=== PATIENT | female | born 1950 | race Caucasian/White ===

== ENCOUNTER 2016-11-17 10:39 | Outpatient (CLI) | payer MEDICARE ==
[2016-11-17 11:10] LABS: HEMOGLOBIN A1C 0.65 g/dL
== END 2016-11-17 10:40 | disposition home or self-care (01) ==
LOC: LAB 10:39
PROVIDERS: ATTEND Physician Assistant Medical
DX: E11.9 Type 2 diabetes mellitus without complications (principal)
CPT/HCPCS: 36415; 80053; 83036; 86803

== ENCOUNTER 2016-11-25 10:45 | Outpatient (CLI) | payer MEDICARE ==
--- NOTE | 2016-11-26 15:20 | Mammography Report ---
DIGITAL SCREENING MAMMOGRAM: 11/25/2016 CLINICAL INDICATION: A 66-year-old nulliparous patient, for screening. COMPARISON: 07/2015, 06/2014, 05/2013, 03/2012, 12/2010. TECHNIQUE: Routine CC and MLO projections were obtained of the breasts. FINDINGS: Parenchymal tissue within the breasts is predominantly fatty replaced. There are no domina nt masses, suspicious microcalcifications, or secondary signs of malignancy. In comparison to the pre vious studies, there are no significant changes. IMPRESSION: NO MAMMOGRAPHIC EVIDENCE OF MALIGNANCY. NO SIGNIFICANT INTERVAL CHANGES. RECOMMENDATION: Screening mammography is recommended annually. BIRADS category 1 - negative. STANDARD QUALIFYING STATEMENTS 1. This examination was reviewed with the aid of Computed-Aided Detection (CAD). 2. A negative or benign imaging report should not delay biopsy if clinically suspicious findings are present. Consider surgical consultation if warranted. More than 5% of cancers are not identified by i maging. 3. Dense breasts may obscure an underlying neoplasm. 14:9:35 JOB #: [id number] EXT JOB #:[id number]
== END 2016-11-25 10:46 | disposition home or self-care (01) ==
LOC: DI 10:45
PROVIDERS: ATTEND Physician Assistant Medical
DX: Z12.31 Encounter for screening mammogram for malignant neoplasm of breast (principal)
CPT/HCPCS: 77067

== ENCOUNTER 2017-01-27 08:09 | Day surgery (SDC) | payer MEDICARE ==
[2017-01-27] MEDS ORDERED: LACTATED RINGERS 1,000 ML IV ONE (08:55)
[2017-01-27] MEDS ORDERED: CYCLOPENTOLATE 1% OPHTH DROPS 2 ML OPTH ONE (09:15)
[2017-01-27] MEDS ORDERED: PHENYLEPHRINE 2.5% OPHTH 2 ML DROPS OPTH ONE (09:15)
[2017-01-27] MEDS ORDERED: PROPARACAINE 0.5% OPHTH DROPS 15 ML OPTH ONE ×2 (09:15→10:01)
[2017-01-27] MEDS ORDERED: KETOROLAC 0.45% OPHTH DROPS OPTH ONE (09:15)
[2017-01-27] MEDS ORDERED: LACTATED RINGERS 500 ML IV ONE (10:03)
[2017-01-27] MEDS ORDERED: EPINEPHrine 1 MG/ML AMP IVP ONE (10:06)
[2017-01-27] MEDS ORDERED: BRIMONIDINE 0.2% OPHTH DROPS 5 ML OPTH ONE (10:06)
[2017-01-27] MEDS ORDERED: MIDAZOLAM 2 MG/2 ML VIAL IVP ONE (10:09)
[2017-01-27] MEDS ORDERED: PROPOFOL 200 MG/20 ML VIAL IVP ONE (10:09)
[2017-01-27] MEDS ORDERED: LIDOCAINE-MPF 2% 5 ML VIAL IM ONE (10:09)
[2017-01-27] MEDS ORDERED: TIMOLOL 0.5% OPHTH DROPS OPTH ONE (10:13)
[2017-01-27] MEDS ORDERED: CHONDR SULF/HYALURONATE SYRINGE IO ONE (10:13)
[2017-01-27] MEDS ORDERED: BSS/LIDOCAINE/EPINEPHRINE 1 ML SYRINGE IO ONE (10:13)
[2017-01-27] MEDS ORDERED: TRIAMCIN/MOXIFLOX/VANCO 1 ML VIAL IO ONE (10:13)
[2017-01-27 10:30] VITALS: BP 141/62
--- NOTE | 2017-01-27 10:52 | OPERATIVE REPORT ---
DATE OF SURGERY: 01/27/2017 00:00:00 PREOPERATIVE DIAGNOSIS: Visually significant cataract, right eye. This is her first cataract surgery. POSTOPERATIVE DIAGNOSIS: Visually significant cataract, right eye. This is her first cataract surgery . NAME OF PROCEDURE: Phacoemulsification with posterior chamber intraocular lens implant, right eye. SURGEON: Gian Sequeira MD ANESTHESIA: Monitored anesthesia care. COMPLICATIONS: None. OPERATIVE INDICATIONS: This is a 66-year-old woman with progressive vision loss in the right eye due to 2-3+ nuclear sclerotic and 3+ cortical cataract. Best corrected visual acuity was 20/40 with glare to 20/630. Indications for surgery were overall decrease in vision, difficulty seeing words on a com puter screen, difficulty seeing words and game scores on TV, difficulty seeing street signs, difficul ty with glare or bright lights in any situation, and she said everything looks like smog and is hazy. She was consented at length concerning the risks and benefits of cataract surgery after which she ex pressed a desire to proceed with surgery. OPERATIVE PROCEDURE: The patient was taken into OR #2 and placed under monitored anesthesia care. A s urgical time-out was conducted confirming correct patient, correct procedure and correct surgical sit e. She was given topical anesthesia and then prepped and draped in the usual sterile fashion. The eye was entered at the 12 and 9 o'clock positions. Intracameral Shugarcaine was injected into the anteri or chamber followed by Viscoat. A continuous tear curvilinear capsulorrhexis was performed. The nucle us was hydrodissected and phacoemulsified. Cortex was evacuated using automated infusion and aspirati on. Provisc was injected in the capsular bag and a 21.0 diopter intraocular lens was inserted into th e bag. Approximately 0.7 mL of a mixture of triamcinolone, moxifloxacin and vancomycin was injected s ubconjunctivally in the superior quadrant for infection and inflammation prophylaxis. I/A was used to evacuate the viscoelastic materials. The eye was inflated to physiologic pressure using balanced linda t solution and found to be watertight. The patient was taken from the operating room in good conditio n and given postoperative instructions. JOB #: [id number] EXT JOB #:[id number]
== END 2017-01-27 08:10 | disposition home or self-care (01) ==
LOC: SDS 08:09
PROVIDERS: ATTEND Ophthalmology
PROC: 08RJ3JZ Replacement of Right Lens with Synthetic Substitute, Percutaneous Approach (ICD-10-PCS; principal; 2017-01-27 09:30)
DX: E11.36 Type 2 diabetes mellitus with diabetic cataract (principal); H25.811 Combined forms of age-related cataract, right eye; M19.90 Unspecified osteoarthritis, unspecified site; Z87.891 Personal history of nicotine dependence; K21.9 Gastro-esophageal reflux disease without esophagitis; G47.30 Sleep apnea, unspecified; Z79.82 Long term (current) use of aspirin; E78.00 Pure hypercholesterolemia, unspecified; I10 Essential (primary) hypertension
CPT/HCPCS: 66984; A9270; V2632

== ENCOUNTER 2017-03-24 07:42 | Day surgery (SDC) | payer MEDICARE ==
[~2017-03-24 07:42] MED LIST: BRIMONIDINE 0.2% OPHTH DROPS 5 ML ONE; CYCLOPENTOLATE 1% OPHTH DROPS 2 ML ONE; KETOROLAC 0.45% OPHTH DROPS ONE; PHENYLEPHRINE 2.5% OPHTH 2 ML DROPS ONE; PROPARACAINE 0.5% OPHTH DROPS 15 ML ONE; TIMOLOL 0.5% OPHTH DROPS ONE
[2017-03-24] MEDS ORDERED: MIDAZOLAM 2 MG/2 ML VIAL IVP ONE (07:43)
[2017-03-24] MEDS ORDERED: PROPOFOL 200 MG/20 ML VIAL IVP ONE (07:43)
[2017-03-24] MEDS ORDERED: LIDOCAINE-MPF 2% 5 ML VIAL IM ONE (07:43)
[2017-03-24] MEDS ORDERED: PHENYLEPHRINE 2.5% OPHTH 2 ML DROPS OPTH ONE (08:00)
[2017-03-24] MEDS ORDERED: KETOROLAC 0.45% OPHTH DROPS OPTH ONE (08:00)
[2017-03-24] MEDS ORDERED: CYCLOPENTOLATE 1% OPHTH DROPS 2 ML OPTH ONE (08:00)
[2017-03-24] MEDS ORDERED: PROPARACAINE 0.5% OPHTH DROPS 15 ML OPTH ONE ×2 (08:00→09:25)
[2017-03-24] MEDS ORDERED: LACTATED RINGERS 500 ML IV ONE (08:15)
[2017-03-24] MEDS ORDERED: BRIMONIDINE 0.2% OPHTH DROPS 5 ML OPTH ONE (09:24)
[2017-03-24] MEDS ORDERED: CHONDR SULF/HYALURONATE SYRINGE IO ONE (09:25)
[2017-03-24] MEDS ORDERED: EPINEPHrine 1 MG/ML AMP IVP ONE (09:25)
[2017-03-24] MEDS ORDERED: TIMOLOL 0.5% OPHTH DROPS OPTH ONE (09:26)
[2017-03-24] MEDS ORDERED: BSS/LIDOCAINE/EPINEPHRINE 1 ML SYRINGE IO ONE (09:26)
[2017-03-24] MEDS ORDERED: TRIAMCIN/MOXIFLOX/VANCO 1 ML VIAL IO ONE (09:26)
[2017-03-24 10:02] VITALS: BP 148/69
--- NOTE | 2017-03-24 10:11 | OPERATIVE REPORT ---
DATE OF SURGERY: 03/24/2017 00:00:00 PREOPERATIVE DIAGNOSIS: Visually significant cataract, left eye. Cataract surgery was performed on th e right eye on 01/27/2017. POSTOPERATIVE DIAGNOSIS: Visually significant cataract, left eye. Cataract surgery was performed on t he right eye on 01/27/2017. NAME OF PROCEDURE: Phacoemulsification posterior chamber intraocular lens implant, left eye. SURGEON: Gian Sequeira MD. ANESTHESIA: Monitored anesthesia care. COMPLICATIONS: None. OPERATIVE INDICATIONS: This is a 66-year-old woman with progressive vision loss in the left eye due t o a 2 to 3+ nuclear sclerotic and 3+ cortical cataract. Best corrected visual acuity was 20/40 with g lare to 20/400 in the left eye. Indications for surgery were overall decrease in vision, difficulty s eeing words on a computer screen, difficulty reading, difficulty seeing words or close captions on TV , difficulty seeing street signs, difficulty driving in low light or at night, difficulty driving at night because of head lights from other vehicles, difficulty with glare or bright lights in any situa tion, difficulty tracking a golf ball, and everything looks smokey or smoggy. She was consented at [facility] concerning the risks and benefits of cataract surgery, after which she expressed a desire to pro ceed with surgery. OPERATIVE PROCEDURE: The patient was taken into OR #2 and placed under monitored anesthesia care. A s urgical time-out was conducted confirming the correct patient, correct procedure and correct surgical site. She was given topical anesthesia and then prepped and draped in the usual sterile fashion. The eye was entered at the 6- and 3 o'clock positions. Intracameral Shugarcaine was injected into anteri or chamber followed by Viscoat. A continuous tear curvilinear capsulorrhexis was performed. The nucle us was hydrodissected and phacoemulsified. The cortex was evacuated using automated infusion aspirati on. Provisc was injected in the capsular bag and a 21.0 diopter intraocular lens inserted into the ba g. Approximately 0.7 mL of a mixture of triamcinolone, moxifloxacin, and vancomycin was injected subc onjunctivally in the superior quadrant for infection and inflammation prophylaxis. I/A was used to ev acuate the viscoelastic materials. The eye was inflated to physiologic pressure using balanced salt s olution and found to be watertight. The patient was taken from the operating room in good condition a nd given postoperative instructions. JOB #: [id number] EXT JOB #:[id number]
== END 2017-03-24 07:43 | disposition home or self-care (01) ==
LOC: SDS 07:42
PROVIDERS: ATTEND Ophthalmology
PROC: 08RK3JZ Replacement of Left Lens with Synthetic Substitute, Percutaneous Approach (ICD-10-PCS; principal; 2017-03-24 09:00)
DX: H25.812 Combined forms of age-related cataract, left eye (principal); I10 Essential (primary) hypertension; E78.5 Hyperlipidemia, unspecified; G47.30 Sleep apnea, unspecified; C95.90 Leukemia, unspecified not having achieved remission; Z87.891 Personal history of nicotine dependence
CPT/HCPCS: 66984; A9270; J3490; V2632

== ENCOUNTER 2017-05-30 09:49 | Outpatient (CLI) | payer MEDICARE | END 2017-05-30 09:50 | disposition home or self-care (01) | LOC: SC 09:49 | PROVIDERS: ATTEND Internal Medicine Pulmonary Disease | DX: G47.33 Obstructive sleep apnea (adult) (pediatric) (principal) | CPT/HCPCS: 99213; G0463; 99212 ==

== ENCOUNTER 2017-08-04 10:35 | Outpatient (CLI) | payer MEDICARE | END 2017-08-04 10:36 | disposition home or self-care (01) | LOC: LAB 10:35 | PROVIDERS: ATTEND Physician Assistant Medical | DX: M10.9 Gout, unspecified (principal) | CPT/HCPCS: 36415; 84550 ==

== ENCOUNTER 2017-08-24 09:40 | Outpatient (CLI) | payer MEDICARE ==
[2017-08-24 10:22] LABS: CHOL/HDL RATIO 3.5 (<4.4); CHOLESTEROL 159 mg/dL; HDL CHOLESTEROL 45 mg/dL; LDL CHOLESTEROL,CALCULATED 92 mg/dL; VLDL CHOLESTEROL 22 mg/dL
[2017-08-24 10:46] LABS: HB2 TOTAL 14.1 g/dL; HEMOGLOBIN A1C 0.66 g/dL; HEMOGLOBIN A1C % 6.4 % (4.6-6.2)
== END 2017-08-24 09:41 | disposition home or self-care (01) ==
LOC: LAB 09:40
PROVIDERS: ATTEND Physician Assistant Medical
DX: E11.9 Type 2 diabetes mellitus without complications (principal)
CPT/HCPCS: 80061; 83036; 83721

== ENCOUNTER 2018-02-01 09:35 | Outpatient (CLI) | payer MEDICARE ==
[2018-02-01 10:38] LABS: HB2 TOTAL 13.4 g/dL; HEMOGLOBIN A1C 0.51 g/dL; HEMOGLOBIN A1C % 5.6 % (4.6-6.2)
[2018-02-01 11:03] LABS: CHOL/HDL RATIO 3.5 (<4.4); CHOLESTEROL 159 mg/dL; HDL CHOLESTEROL 46 mg/dL; LDL CHOLESTEROL,CALCULATED 90 mg/dL; VLDL CHOLESTEROL 23 mg/dL
== END 2018-02-01 09:36 | disposition home or self-care (01) ==
LOC: LAB 09:35
PROVIDERS: ATTEND Physician Assistant Medical
DX: E11.9 Type 2 diabetes mellitus without complications (principal)
CPT/HCPCS: 80061; 83036; 83721

== ENCOUNTER 2018-02-23 13:23 | Outpatient (CLI) | payer MEDICARE ==
--- NOTE | 2018-02-24 10:18 | Mammography Report ---
Reason: SCREENING MAMMO Procedure Date: 02/23/2018 Accession Number: [id number] / [id number] Procedure: JULIET - Screening Mammo Dig Bilat CPT Code: FULL RESULT: EXAM: Screening Mammo Dig Bilat DATE: 02/23/2018 3:05 PM CLINICAL HISTORY: Routine screening TECHNIQUE: Bilateral CC and MLO views were obtained. COMPARISON: 11/25/2016, 08/05/2015, 06/27/2014, 06/09/2013 and 03/20/2012 FINDINGS: There is extensive fatty replacement of the breast tissue. There is no significant interval change. No suspicious masses, clustered microcalcifications, or regions of architectural distortion are identified. IMPRESSION: Negative examination RECOMMENDATION: Routine annual screening unless otherwise clinically indicated. BIRADS CATEGORY 1: Negative STANDARD QUALIFYING STATEMENTS: 1. This examination was reviewed with the aid of Computer-Aided Detection (CAD). 2. A negative or benign imaging report should not delay biopsy if clinically suspicious findings are present. Consider surgical consultation if warrented. More than 5% of cancers are not identified by imaging. 3. Dense breasts may obscure an underlying neoplasm.
== END 2018-02-23 13:24 | disposition home or self-care (01) ==
LOC: DI 13:23
PROVIDERS: ATTEND Radiology Diagnostic Radiology
DX: Z12.31 Encounter for screening mammogram for malignant neoplasm of breast (principal)
CPT/HCPCS: 77067

== ENCOUNTER 2018-08-18 09:29 | Outpatient (CLI) | payer MEDICARE ==
[2018-08-18 12:35] LABS: HB2 TOTAL 14.3 g/dL; HEMOGLOBIN A1C 0.52 g/dL; HEMOGLOBIN A1C % 5.5 % (4.6-6.2)
== END 2018-08-18 09:30 | disposition home or self-care (01) ==
LOC: LAB 09:29
PROVIDERS: ATTEND Physician Assistant Medical
DX: E11.9 Type 2 diabetes mellitus without complications (principal)
CPT/HCPCS: 36415; 83036

== ENCOUNTER 2018-08-31 15:00 | Outpatient (CLI) | payer MEDICARE | END 2018-08-31 23:59 | LOC: LAB.R 15:00 | PROVIDERS: ATTEND Physician Assistant Medical | DX: J34.89 Other specified disorders of nose and nasal sinuses (principal) | CPT/HCPCS: 87640 ==

== ENCOUNTER 2018-12-27 10:10 | Outpatient (CLI) | payer MEDICARE ==
[2018-12-27 11:16] LABS: ALBUMIN 3.9 g/dL (3.2-5.5); BILIRUBIN,DIRECT 0.1 mg/dL (0.1-0.5); BILIRUBIN,TOTAL 0.7 mg/dL (0.2-1.0); CREATININE 0.6 mg/dL (0.4-1.0); TOTAL PROTEIN 6.5 g/dL (6.7-8.2)
== END 2018-12-27 10:11 | disposition home or self-care (01) ==
LOC: LAB 10:10
PROVIDERS: ATTEND Physician Assistant Medical
DX: B35.1 Tinea unguium (principal)
CPT/HCPCS: 36415; 80076; 82565; 84520

== ENCOUNTER 2019-05-28 09:38 | Outpatient (CLI) | payer MEDICARE ==
[2019-05-28 10:19] LABS: HB2 TOTAL 13.4 g/dL; HEMOGLOBIN A1C 0.56 g/dL
[2019-05-28 10:48] LABS: ALBUMIN/GLOBULIN RATIO 1.6 (1.0-2.2); BILIRUBIN,TOTAL 0.3 mg/dL (0.2-1.0); CALCIUM 9.1 mg/dL (8.5-10.3); CREATININE 0.6 mg/dL (0.4-1.0); TOTAL PROTEIN 6.5 g/dL (6.7-8.2)
== END 2019-05-28 09:39 | disposition home or self-care (01) ==
LOC: LAB 09:38
PROVIDERS: ATTEND Physician Assistant Medical
DX: E11.9 Type 2 diabetes mellitus without complications (principal)
CPT/HCPCS: 36415; 80053; 83036; 84443

== ENCOUNTER 2019-06-21 07:52 | Outpatient (CLI) | payer MEDICARE ==
--- NOTE | 2019-06-21 09:04 | Mammography Report ---
Reason: ROUTINE MAMMO Procedure Date: 06/21/2019 Accession Number: [id number] / [id number] Procedure: JULIET - Screening Mammo w/Jamie CPT Code: Final Report FULL RESULT: EXAM: Screening Mammo w/Jamie DATE: 06/21/2019 8:30 AM CLINICAL HISTORY: Screening encounter. History of early menses and nulliparity. TECHNIQUE: (B) - Bilateral CC and MLO views were obtained. COMPARISON: 02/23/2018 through 12/29/2010. PARENCHYMAL PATTERN: (F) - The breast(s) demonstrate(s) diffuse fatty replacement. FINDINGS: There are no suspicious masses, calcifications, or areas of distortion. IMPRESSION: Negative examination. BI-RADS category 1. RECOMMENDATION: (ANNUAL) - Recommend routine annual screening mammography. BI-RADS CATEGORY: (1) - Negative. STANDARD QUALIFYING STATEMENTS: 1. This examination was not reviewed with the aid of Computer-Aided Detection (CAD). 2. A negative or benign imaging report should not preclude biopsy if clinically suspicious findings are present. 3. Dense breasts may obscure an underlying neoplasm. 4. This examination was reviewed with the aid of 3D breast imaging (tomosynthesis).
== END 2019-06-21 07:53 | disposition home or self-care (01) ==
LOC: DI 07:52
DX: Z12.31 Encounter for screening mammogram for malignant neoplasm of breast (principal)
CPT/HCPCS: 77063; 77067

== ENCOUNTER 2019-11-20 09:03 | Outpatient (CLI) | payer MEDICARE ==
[2019-11-20 09:46] LABS: HB2 TOTAL 13.8 g/dL; HEMOGLOBIN A1C 0.6 g/dL; HEMOGLOBIN A1C % 6.1 % (4.6-6.2)
[2019-11-20 10:31] LABS: CHOL/HDL RATIO 2.7 (<4.4); CHOLESTEROL 163 mg/dL; HDL CHOLESTEROL 61 mg/dL; LDL CHOLESTEROL,CALCULATED 82 mg/dL; LDL/HDL RATIO 1.3 (<4.4); VLDL CHOLESTEROL 20 mg/dL
== END 2019-11-20 09:04 | disposition home or self-care (01) ==
LOC: LAB 09:03
PROVIDERS: ATTEND Physician Assistant Medical
DX: E11.9 Type 2 diabetes mellitus without complications (principal)
CPT/HCPCS: 80061; 83036; 83721

== ENCOUNTER 2020-05-27 09:41 | Outpatient (CLI) | payer MEDICARE | END 2020-05-27 09:42 | disposition home or self-care (01) | LOC: LAB 09:41 | PROVIDERS: ATTEND Physician Assistant Medical | DX: E11.9 Type 2 diabetes mellitus without complications (principal) | CPT/HCPCS: 36415; 83036 ==

== ENCOUNTER 2020-07-21 09:05 | Outpatient (CLI) | payer MEDICARE ==
--- NOTE | 2020-07-21 16:09 | DEXA Report ---
PROCEDURE: Dexa Spine and/or Hip INDICATIONS: SCREENING FOR OSTEOPOROSIS TECHNIQUE: Dual energy x-ray absorptiometry (DXA) was performed on a [email or web address] System. Regions measur ed are the AP Spine, femoral neck, and if needed forearm. COMPARISON: Prior similar study dated 12/25/2015 reviewed.. FINDINGS: Lumbar Spine: Bone Mineral Density 1.831 g/cm/cm,T score 5.4, normal this represents a statistically significant improvement from December 2015 of 3.4% increased bone mineral density. Left Hip: Bone Mineral Density 1.067 g/cm/cm,T score 0.5, normal. This represents, however, a reduction in ove rall left hip bone mineral density that is statistically significant, by 7.8%. Left Femoral Neck: Bone Mineral Density 0.974 g/cm/cm, T score -0.5, normal (T score greater or equal to -1.0: NORMAL) (T score from -1.1 to -2.4: OSTEOPENIA) (T score less than or equal to -2.5 to: OSTEOPOROSIS) Impression: There is normal bone mineral density at the lumbosacral spine overall, and the left hip r egion overall. The lumbosacral spine shows a statistically significant mild improvement in bone screen examiner al density from December 2015 and 3.4% in the left hip overall shows a reduction in bone mineral density of approximately 8% but still in the normal range of density currently. The left femoral neck focally shows normal bone mineral density also. Patients with diagnosis of osteoporosis or osteopenia should have regular bone mineral density assess ment. For those eligible for Medicare, routine testing is allowed once every 2 years. Testing frequ ency can be increased for patients who have rapidly progressing disease or for those who are receivin g medical therapy to restore bone mass. Reviewed by: Frederic Irene MD on 07/21/2020 4:08 PM PST Approved by: Frederic Irene MD on 07/21/2020 4:08 PM PST Station ID: [id number]
== END 2020-07-21 09:06 | disposition home or self-care (01) ==
LOC: DI 09:05
PROVIDERS: ATTEND Family Medicine
DX: Z13.820 Encounter for screening for osteoporosis (principal); Z78.0 Asymptomatic menopausal state

== ENCOUNTER 2020-08-14 12:44 | Outpatient (CLI) | payer MEDICARE ==
--- NOTE | 2020-08-15 13:02 | Mammography Report ---
BILATERAL DIGITAL SCREENING MAMMOGRAM 3D/2D: 08/14/2020 CLINICAL: Routine screening. Comparison is made to exams dated: 06/21/2019 mammogram, 02/23/2018 mammogram, 11/25/2016 mammogram, 2015 mammogram, and 06/27/2014 mammogram - [facility]. The tissue of both breasts is predominantly fatty. No significant masses, calcifications, or other findings are seen in either breast. There has been no significant interval change. IMPRESSION: NEGATIVE There is no mammographic evidence of malignancy. A 1 year screening mammogram is recommended. This exam was interpreted at Station ID: [id number]. NOTE: For mammograms, a report in lay terms will be sent to the patient. Approximately 15% of breast malignancies will not be visualized mammographically. In the management of a palpable breast mass, a negative mammogram must not discourage biopsy of a clinically suspicious lesion. Electronically Signed By: Beryr Anand acr/penrad:08/14/2020 15:38:32 ACR BI-RADS Category 1: Negative 3341F PARENCHYMAL PATTERN: (F) - The breast(s) demonstrate(s) diffuse fatty replacement. BI-RADS CATEGORY: (1) - 1 RECOMMENDATION: (ANNUAL) - Recommend routine annual screening mammography. [id number] 1 year screening LATERALITY: (B)
== END 2020-08-14 12:45 | disposition home or self-care (01) ==
LOC: DI 12:44
DX: Z12.31 Encounter for screening mammogram for malignant neoplasm of breast (principal)

== ENCOUNTER 2020-09-01 09:21 | Outpatient (CLI) | payer MEDICARE ==
[2020-09-01 10:22] VITALS: BP 169/89
--- NOTE | 2020-09-01 10:22 | SLEEP CARE CONSULTATION ---
Information from patient questionnaire entered by Emily Glass. I have reviewed and concur with the information entered by Emily Glass. This document represents the service I personally performed and the decisions made by me, Shandra Crowe MD, [facility]. History of Present Illness Service Date and Time: 09/01/2020920 Reason for Visit: New patient, Previously diagnosed sleep apnea (mild - AHI - 12.1), sleep apnea on CPAP therapy, Re-establish care (last seen 05/2017) Chief Complaint: reports: Insomnia, Unrefreshed sleep, Snoring, Excessive daytime sleepiness, Observed pauses in breathing, Fatigue, Frequent awakenings at night Date of Onset: years Usual bedtime: 10-11 pm Time it takes to fall asleep: more than an hour at times Snores at night: Yes Observed to quit breathing while asleep: Yes Number of times waking at night: every 2 hours or so Reasons for waking at night: reports: Pain (mostly) Toss, Turn, or Twitch while sleeping: Yes Recalls having dreams: No Usually gets out of bed at: 8-9 am Feels refreshed in the morning: No Morning headache: Yes Sleepy or fatigued during the day: Yes Ever fallen asleep while driving: Yes Takes day naps: Yes Dreams during day naps: No Prior sleep studies: Yes Year and Where: 2014 [facility] Sleep Type of Sleep Study: Polysomnography Additional HPI information: HPI: Ms. Johnson returned today for annual follow up of nasal CPAP therapy. She was diagnosed to have mild obstructive sleep apnea-hypopnea syndrome. The patient got her supplies from [employer]. She wears a nasal mask. She continues to use the device nightly but not all night. The compliance report shows usage in 70 nights out of the past 70 nights, averaging 5.7 hours a night. The > 4 hour compliance rate for the past 70 days is 75.7%. She complained of no particular problem with the device such as soreness on the face, dry nose, epistaxis, nasal congestion or headache. She thinks that the pressure of 10 cmH 2O is comfortable (more comfortable than 9 cmH2O). On the CPAP therapy she notices improvement in her sleep quality, and that she wakes up feeling fresher in the morning and more awake/alert during the day. Her Duncan Sleepiness Scale score is 13 (was 10). The average residual AHI is 2.2; and air leak, 3 seconds a night. - Parasomnia Symptoms Ever been unable to move upon waking from sleep: Yes Ever felt weak in the knees when startled or emotional: Yes Bothered by creepy, crawly, restless sensations in legs: Yes Problems with memory or concentration: Yes CPAP Compliance Data - Data Reviewed with Patient Average duration of nightly device use: 5 hr 24 min Compliance rate %: 75.0 (60 days) Current pressure setting (cmH2O): 10 Humidity settin Average residual AHI: 2.4 Average large leak: 3 sec Subjective Initial Duncan Sleepiness Scale score: 14 (in 2015) Current Duncan Sleepiness Scale score: 13 Past Medical History Past Medical History: reports: Hypertension, Claustrophobia, Diabetes (diet), Arthritis, Gout, Anemia, Anxiety, Attention deficit, Other Social History The patient's occupation is a Retired. Patient is Single and lives in [place]. Have you smoked in the past 12 months: No Cigarettes per day (20/pack): 10 Years of smokin Quit date: 1993 Smoking Pack Years: 5.0 Alcohol use: Yes Alcohol amount and frequency: A little, rarely Caffeine use: Yes Caffeine amount and frequency: 2 cups in the a.m. Family History Family history of sleep disordered breathing: Yes (brother(passed)) Allergies and Home Medications Drug allergies reviewed: Yes Home medication list reviewed: Yes Review of Systems Weight loss over past 5 years: 45 Cardiovascular: reports: high blood pressure, other (murmer) Respiratory: reports: sputum production Gastrointestinal: reports: nausea (only while doing chemo) Neurological: reports: headaches Psychiatric: reports: Attention Deficit Hyperactivity, anxiety, claustrophobia Ear/Nose/Throat: reports: nasal congestion, sinus problems, dry mouth/throat, wisdom teeth removed Endocrine: reports: sluggishness Musculoskeletal: reports: joint pain, neck pain, back pain, joint swelling, muscle pain or cramping Immunologic: reports: allergies to food or environment (seasonal) Physical Exam Vital signs obtained and entered by: Dr. Crowe Blood Pressure: 169/89 Cuff size: regular Heart Rate: 67 O2 Saturation: 96 Height: 5 ft 6 in Weight: 211 lb Body Mass Index: 34.0 BMI Classification: Obese Neck circumference: 17 Impression and Plan IMPRESSION: 1. Obstructive Sleep Apnea-Hypopnea Syndrome, mild, with the patient continuing to do well on nasal CPAP therapy. She has good compliance and significant clinical improvement. She has been on CPAP therapy for more than 20 years now. The current pressure appears effective and comfortable. Overall, she is very satisfied with treatment and plans to continue with it long-term. Because the CPAP is now older than the useful life of 5 years, I will order the patient a new one and make it an autoCPAP set between 6 10 cmH2O. PLAN: 1. Prescription made for an autoCPAP, heated humidifier, and related supplies. 2. Try to lose weight 3. Return for follow up after one month of using the CPAP. Visit Type: In Office Time Spent with Patient (minutes): 15 Provider Statement: I spent 100% of the Face to Face Visit with the patient with greater than 50% spent counseling the patient and coordination of care.
== END 2020-09-01 09:22 | disposition home or self-care (01) ==
LOC: SC 09:21
PROVIDERS: ATTEND Internal Medicine Pulmonary Disease
DX: G47.33 Obstructive sleep apnea (adult) (pediatric) (principal); E66.9 Obesity, unspecified; Z68.34 Body mass index [BMI] 34.0-34.9, adult
CPT/HCPCS: 99202; G0463; 99212

== ENCOUNTER 2020-11-03 11:08 | Outpatient (CLI) | payer MEDICARE ==
--- NOTE | 2020-11-03 11:51 | SLEEP CARE CONSULTATION ---
Information from patient questionnaire entered by Emily Glass. I have reviewed and concur with the information entered by Emily Glass. This document represents the service I personally performed and the decisions made by me, Shandra Crowe MD, [facility]. History of Present Illness Service Date and Time: 11/03/2020 1108 Previous diagnosis: Mild, Obstructive Sleep Apnea-Hypopnea Syndrome AHI: 12.1 (in 2014) Reason for follow up: first compliance after device update Equipment type: CPAP Equipment obtained from: [employer] Mask style: Nasal Prior sleep studies: Yes Year and Where: 2014 - [facility] Sleep Type of Sleep Study: Polysomnography HPI additional information: HPI: Ms. Johnson returned today for annual follow up of nasal CPAP therapy. She was diagnosed to have mild obstructive sleep apnea-hypopnea syndrome. The patient recently acquired a new device from [employer]. She wears a Wisp nasal mask. She uses the new device nightly and all night. The compliance report shows usage in 30 nights out of the past 30 nights, averaging 6.3 hours a night. The > 4 hour compliance rate for the past 30 days is 100%. She complained of no particular problem with the device such as soreness on the face, dry nose, epistaxis, nasal congestion or headache. She thinks that the pressure of 6 - 10 cmH2O is a little too low. On the CPAP therapy she notices improvement in her sleep quality, and that she wakes up feeling fresher in the morning and more awake/alert during the day. Her Douglas Sleepiness Scale score is 12 (was 10). The average residual AHI is 4.1; and air leak, 0 seconds a night. CPAP Compliance Data - Data Reviewed with Patient Average duration of nightly device use: 6 hr 15 min Compliance rate %: 96.7 Current pressure setting (cmH2O): 6-10 Humidity settin Heated hose settin Average residual AHI: 4.1 Average large leak: 0 Subjective Patient concerns: reports: nasal congestion, dry mouth, nose, throat Current pressure setting perceived as: too low Initial Douglas Sleepiness Scale score: 14 (in 2014) Current Douglas Sleepiness Scale score: 12 Allergies and Home Medications Drug allergies reviewed: Yes Home medication list reviewed: Yes Review of Systems Review of systems same as previous: Yes Physical Exam Height: 5 ft 6 in Weight: 240 lb Body Mass Index: 38.7 BMI Classification: Obese Impression and Plan IMPRESSION: 1. Obstructive Sleep Apnea-Hypopnea Syndrome, mild, with the patient continuing to do well on nasal CPAP therapy. She has good compliance and significant clinical improvement. She has been on CPAP therapy for more than 20 years now. The current pressure appears effective but slightly uncomfortable. I will raise the pressure up to 8 - 11 cmH2O. PLAN: 1. AutoCPAP set to 8 11 cmH2O. Prescription written. 2. Try to lose weight 3. Try a [employer] DreamWisp nasal mask 4. Return for follow up in a year or earlier if there is any problem. Follow up recommended for: Weight management Visit Type: In Office Time Spent with Patient (minutes): 15 Provider Statement: I spent 100% of the Face to Face Visit with the patient with greater than 50% spent counseling the patient and coordination of care.
== END 2020-11-03 11:09 | disposition home or self-care (01) ==
LOC: SC 11:08
PROVIDERS: ATTEND Internal Medicine Pulmonary Disease
DX: G47.33 Obstructive sleep apnea (adult) (pediatric) (principal); E66.9 Obesity, unspecified; Z68.38 Body mass index [BMI] 38.0-38.9, adult
CPT/HCPCS: 99212; G0463

== ENCOUNTER 2021-02-12 16:54 | Emergency (ER) | payer MEDICARE ==
[2021-02-12 17:20] VITALS: BP 180/67
[2021-02-12] MEDS ORDERED: cephALEXin 250 MG CAPSULE PO STA (18:29)
--- NOTE | 2021-02-12 18:32 | ED Physician Documentation ---
History of Present Illness - Stated complaint Stated Complaint: SHINGLES SHOT/REDNESS/SWOLLEN - Chief complaint Chief Complaint: General - History obtained from History obtained from: Patient - Additonal information Additional information: She received a shingles shot on Tuesday, 5 days ago, that night developed redness and pain in that site and still has fatigue and chills without measured fevers. Never had a reaction to a vaccine like this before. 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 Review of Systems Constitutional: reports: Chills, Myalgias. denies: Fever Ears: reports: Reviewed and negative Nose: reports: Reviewed and negative Throat: reports: Reviewed and negative PD PAST MEDICAL HISTORY - Past Medical History Cardiovascular: Hypertension, High cholesterol, Murmur Respiratory: Sleep apnea, CPAP use Endocrine/Autoimmune: None GI: GERD : None HEENT: None Psych: Anxiety Musculoskeletal: Osteoarthritis, Gout Derm: Herpes zoster - Past Surgical History Past Surgical History: Yes General: Cholecystectomy, Colonoscopy, EGD Ortho: Knee replacement, Carpal Tunnel surgery /[employer]: Oophrectomy HEENT: Cataracts - Present Medications Home Medications: Ambulatory Orders Medication Instructions Recorded Confirmed Aspirin 325 mg PO DAILY 03/29/14 10/22/20 Enalapril [Vasotec] 10 mg PO DAILY 03/29/14 10/22/20 Labetalol [Trandate] 100 mg PO BID 03/29/14 10/22/20 Multivitamin [Multivitamins] 1 each PO DAILY 03/29/14 10/22/20 Pravastatin Sodium 20 mg PO QPM 03/29/14 10/22/20 busPIRone [Buspar] 15 mg PO BID 03/29/14 10/22/20 lisinopriL [Lisinopril] 10 mg PO DAILY 03/29/14 10/22/20 Diphenhydramine HCl [Antihistamine] 50 mg PO BID 08/07/14 10/22/20 Zolpidem Tartrate 5 mg PO DAILY 08/07/14 10/22/20 allopurinoL [Allopurinol] 300 mg PO DAILY 08/07/14 10/22/20 Chlorambucil [Leukeran] 10 mg PO DAILY 08/14/14 10/22/20 traMADol [Ultram] 50 mg PO BID 05/31/17 05/05/21 Terbinafine [Lamisil] 250 mg PO DAILY 03/21/19 10/22/20 Ondansetron HCl [Zofran] 1 tab PO BID PRN #60 tab 03/05/20 10/22/20 cephALEXin [Keflex] 500 mg PO Q6H #28 cap 02/12/21 - Allergies Allergies/Adverse Reactions: Allergies Allergy/AdvReac Type Severity Reaction Status Date / Time adhesive Allergy Intermediate Rash Verified 02/12/21 17:20 latex Allergy Intermediate Rash Verified 02/12/21 17:20 Penicillins Allergy Intermediate Rash Verified 02/12/21 17:20 - Social History Does the pt smoke?: No Smoking Status: Former smoker Does the pt drink ETOH?: No Does the pt have substance abuse?: No - Immunizations Immunizations are current?: Yes - POLST Patient has POLST: Yes POLST Status: Limited Interventions PD ED PE NORMAL - Vitals Vital signs reviewed: Yes - General General: Alert and oriented X 3, No acute distress - Extremities Extremities: Other (Cellulitis versus local reaction to the vaccine over basically the whole deltoid.) - Neuro Neuro: Alert and oriented X 3, Normal speech Results - Vitals Vitals: Vital Signs - 24 hr 02/12/21 17:15 Temperature 36.4 C L Heart Rate 73 Respiratory 18 Rate Blood Pressure 180/67 H O2 Saturation 96 Oxygen O2 Source Room air Departure - Departure Disposition: 01 Home, Self Care Clinical Impression: Cellulitis Qualifiers: Site of cellulitis: extremity Site of cellulitis of extremity: upper extremity Laterality: right Qualified Code(s): L03.113 - Cellulitis of right upper limb Condition: Good Record reviewed to determine appropriate education?: Yes Instructions: Cellulitis Dc Prescriptions: cephALEXin [Keflex] 500 mg PO Q6H #28 cap Comments: Return if worsening, for fever, or not improving after a few days. Prescription sent electronically to [facility] in [place].
== END 2021-02-12 18:54 | disposition home or self-care (01) ==
LOC: ED 16:54
DX: L03.113 Cellulitis of right upper limb (principal); C91.10 Chronic lymphocytic leukemia of B-cell type not having achieved remission; I10 Essential (primary) hypertension; Z79.82 Long term (current) use of aspirin; Z87.891 Personal history of nicotine dependence
CPT/HCPCS: 99282; 99283; A9270

== ENCOUNTER 2021-07-07 08:49 | Outpatient (CLI) | payer MEDICARE ==
[2021-07-07 12:05] LABS: ESTIMATED AVERAGE GLUCOSE 126 mg/dL (70-100)
== END 2021-07-07 08:50 | disposition home or self-care (01) ==
LOC: LAB 08:49
PROVIDERS: ATTEND Family Medicine
DX: Z01.00 Encounter for examination of eyes and vision without abnormal findings (principal); Z51.81 Encounter for therapeutic drug level monitoring; E11.9 Type 2 diabetes mellitus without complications
CPT/HCPCS: 36415; 83036; 84550

== ENCOUNTER 2021-12-02 09:32 | Outpatient (CLI) | payer MEDICARE ==
[2021-12-02 10:06] LABS: CREATININE 0.7 mg/dL (0.4-1.0); URIC ACID 4.1 mg/dL (2.6-7.2)
== END 2021-12-02 09:33 | disposition home or self-care (01) ==
LOC: LAB 09:32
PROVIDERS: ATTEND Family Medicine
DX: Z51.81 Encounter for therapeutic drug level monitoring (principal); E11.9 Type 2 diabetes mellitus without complications
CPT/HCPCS: 36415; 82043; 82565; 84550

== ENCOUNTER 2021-12-07 12:48 | Outpatient (CLI) | payer MEDICARE ==
--- NOTE | 2021-12-08 13:44 | Mammography Report ---
BILATERAL DIGITAL SCREENING MAMMOGRAM 3D/2D: 12/07/2021 CLINICAL: Routine screening. Comparison is made to exams dated: 08/14/2020 mammogram, 06/21/2019 mammogram, 02/23/2018 mammogram, 2016 mammogram, and 08/05/2015 mammogram - [facility]. There are scattered fibrogla ndular elements in both breasts. No significant masses, calcifications, or other findings are seen in either breast. There has been no significant interval change. IMPRESSION: NEGATIVE There is no mammographic evidence of malignancy. A 1 year screening mammogram is recommended. This exam was interpreted at Station ID: [id number]. NOTE: For mammograms, a report in lay terms will be sent to the patient. Approximately 15% of breast malignancies will not be visualized mammographically. In the management of a palpable breast mass, a negative mammogram must not discourage biopsy of a clinically suspicious lesion. Electronically Signed By: Yosvany Tate M.D. [facility] [place]:12/07/2021 14:15:36 ACR BI-RADS Category 1: Negative 3341F PARENCHYMAL PATTERN: (A) - The breast(s) demonstrate(s) scattered fibroglandular densities. BI-RADS CATEGORY: (1) - 1 RECOMMENDATION: (ANNUAL) - Recommend routine annual screening mammography. [id number] 1 year screening LATERALITY: (B)
== END 2021-12-07 12:49 | disposition home or self-care (01) ==
LOC: DI.N 12:48
PROVIDERS: ATTEND Family Medicine
DX: Z12.31 Encounter for screening mammogram for malignant neoplasm of breast (principal)

== ENCOUNTER 2022-04-13 09:22 | Outpatient (CLI) | payer MEDICARE | END 2022-04-13 09:23 | disposition home or self-care (01) | LOC: RT 09:22 | PROVIDERS: ATTEND Internal Medicine | DX: C91.10 Chronic lymphocytic leukemia of B-cell type not having achieved remission (principal); R06.02 Shortness of breath | CPT/HCPCS: 94010 ==

== ENCOUNTER 2023-03-02 13:42 | Outpatient (CLI) | payer MEDICARE ==
--- NOTE | 2023-03-03 11:23 | Mammography Report ---
BILATERAL DIGITAL SCREENING MAMMOGRAM 3D/2D: 03/02/2023 CLINICAL: Routine screening. Comparison is made to exams dated: 12/07/2021 mammogram, 08/14/2020 mammogram, 06/21/2019 mammogram, 02/23 mammogram, 11/25/2016 mammogram, and 08/05/2015 mammogram - [facility]. There are scattered areas of fibroglandular density in both breasts (category b / 25%-50% glandular t issue). No significant masses, calcifications, or other findings are seen in either breast. There has been no significant interval change. IMPRESSION: NEGATIVE There is no mammographic evidence of malignancy. A 1 year screening mammogram is recommended. Based on the Tyrer Cuzick model (a risk assessment model) the patients lifetime risk is 5.2% and her 10 year risk is 4.2%. According to the ACR, ACS, and NCCN guidelines, an annual breast MRI exam jagdish g with mammogram is recommended if the patients lifetime risk is 20% or greater. This exam was interpreted at Station ID: [id number]. NOTE: For mammograms, a report in lay terms will be sent to the patient. Approximately 15% of breast malignancies will not be visualized mammographically. In the management of a palpable breast mass, a negative mammogram must not discourage biopsy of a clinically suspicious lesion. Electronically Signed By: Cory hicks/osmani:03/02/2023 18:04:32 letter sent: No_Letter ACR BI-RADS Category 1: Negative 3341F PARENCHYMAL PATTERN: (A) - The breast(s) demonstrate(s) scattered fibroglandular densities. BI-RADS CATEGORY: (1) - 1 Mammogram [id number] 1 year screening LATERALITY: (B)
== END 2023-03-02 13:43 | disposition home or self-care (01) ==
LOC: DI 13:42
DX: Z12.31 Encounter for screening mammogram for malignant neoplasm of breast (principal)

== ENCOUNTER 2023-05-02 15:32 | Emergency (ER) | payer MEDICARE ==
[2023-05-02 16:03] VITALS: O2SAT 95
--- NOTE | 2023-05-02 16:26 | XRAY Report ---
PROCEDURE: Knee 4 View LT INDICATIONS: Trauma TECHNIQUE: 4 views of the knee(s) were acquired. COMPARISON: None. FINDINGS: Bones: No fractures or dislocations. No suspicious bony lesions. Knee arthroplasty is present. Moran rdware is intact without evidence of hardware fracture or periprosthetic lucency to suggest loosening . Soft tissues: No knee joint effusion. No suspicious soft tissue calcifications or masses. IMPRESSION: No visualized acute fracture or dislocation. However, occult injury cannot be excluded. Recommend christopher rt interval imaging follow-up in 7-10 days as clinically indicated for additional evaluation. Reviewed by: Katerina Ricks MD on 05/02/2023 4:25 PM PST Approved by: Katerina Ricks MD on 05/02/2023 4:25 PM PST Station ID: [id number]
[2023-05-02] MEDS ORDERED: oxyCODONE 5 MG TABLET PO STA (18:30)
--- NOTE | 2023-05-02 18:34 | ED Physician Documentation ---
History of Present Illness - Stated complaint Stated Complaint: GLF/HEAD INJ/KNEE INJ - Chief complaint Chief Complaint: Trauma Ext - Additonal information Additional information: 72-year-old female presents emergency department for evaluation of acute left knee pain. Reports she was at home ambulating unassisted when she tripped falling directly onto the left knee. She did also strike her head. There was no loss consciousness. No anticoagulation. She was able to get up on her own and was ambulatory for short period of time however she then began to develop swelling on the lateral side of the knee which increased her pain and she then began to have inability to bear weight. She does have a history of previous knee replacement bilaterally. Review of Systems Musculoskeletal: reports: Joint pain, Joint swelling PD PAST MEDICAL HISTORY - Past Medical History Cardiovascular: Hypertension, High cholesterol, Murmur Respiratory: Sleep apnea, CPAP use Endocrine/Autoimmune: None GI: GERD : None HEENT: None Psych: Anxiety Musculoskeletal: Osteoarthritis, Gout Derm: Herpes zoster - Past Surgical History Past Surgical History: Yes General: Cholecystectomy, Colonoscopy, EGD Ortho: Knee replacement, Carpal Tunnel surgery /ESL PROFESSOR: Oophrectomy HEENT: Cataracts - Present Medications Home Medications: Ambulatory Orders Medication Instructions Recorded Confirmed Aspirin 325 mg PO DAILY 03/29/14 03/23/23 Enalapril [Vasotec] 10 mg PO DAILY 03/29/14 03/23/23 Multivitamin [Multivitamins] 1 each PO DAILY 03/29/14 03/23/23 Pravastatin Sodium 40 mg PO QPM 03/29/14 03/23/23 busPIRone [Buspar] 15 mg PO BID 03/29/14 03/23/23 lisinopriL [Lisinopril] 40 mg PO DAILY 03/29/14 03/23/23 Diphenhydramine HCl [Antihistamine] 50 mg PO BID 08/07/14 03/23/23 Zolpidem Tartrate 5 mg PO DAILY 08/07/14 03/23/23 allopurinoL [Allopurinol] 300 mg PO DAILY 08/07/14 03/23/23 Chlorambucil [Leukeran] 10 mg PO DAILY 08/14/14 03/23/23 traMADol [Ultram] 50 mg PO BID 11/17/16 03/23/23 Terbinafine [Lamisil] 250 mg PO DAILY 03/21/19 03/23/23 ondansetron HCL [Zofran] 1 tab PO BID PRN #60 tab 03/05/20 03/23/23 Escitalopram Oxalate 5 mg PO DAILY 02/19/21 03/23/23 Metoprolol Succinate [Toprol Xl] 50 mg PO DAILY 03/11/22 03/23/23 traZODone [Desyrel] 25 mg PO QPM PRN 11/17/22 03/23/23 oxyCODONE [Roxicodone] 5 mg PO TID PRN #20 tablet 05/02/23 - Allergies Allergies/Adverse Reactions: Allergies Allergy/AdvReac Type Severity Reaction Status Date / Time adhesive Allergy Intermediate Rash Verified 11/17/22 14:31 latex Allergy Intermediate Rash Verified 11/17/22 14:31 Penicillins Allergy Intermediate Rash Verified 11/17/22 14:31 - Social History Does the pt smoke?: No Smoking Status: Never smoker Does the pt drink ETOH?: No Does the pt have substance abuse?: No - Immunizations Immunizations are current?: Yes - POLST Patient has POLST: Yes POLST Status: Limited Interventions PD ED PE EXPANDED - General General: Alert, No acute distress - HEENT HEENT: Other (Hematoma above the right eye) - Extremities Extremities: Left knee (Large amount of swelling and ecchymosis lateral side of the left knee. Knee is held in flexion. Patient can extend it but it is painful. Neurovascular intact distally. No tenderness over the patella or the medial joint line.) - Neuro Neuro: Alert and Oriented X 3, CNII-XII intact Results - Vitals Vitals: Vital Signs - 24 hr 05/02/23 15:43 Temperature 36.5 C Heart Rate 70 Respiratory 20 Rate Blood Pressure 154/61 H O2 Saturation 95 Oxygen O2 Source Room air - Rads (name of study) left knee Relevant Findings:: Final report received (No visualized acute fracture or dislocation.) PD Medical Decision Making - ED course Complexity details: reviewed results, re-evaluated patient, d/w patient ED course: 72-year-old female who has a history of bilateral knee replacements presents the emergency department after mechanical ground-level fall at home in which she tripped. She fell directly onto the left knee. She reports that immediately after the incident she was able to get up and walk and bear weight. However short time later she began noticing swelling in the left knee and was having increased pain thus she presents here. She did strike her head but did not lose consciousness. She is not anticoagulated. Given age and history I did offer CT imaging though the patient declined. An x-ray of the left knee showed no obvious fracture. However the patient has developed a very large hemarthrosis. Patient was given a single dose of oxycodone here in the emergency department and the knee was Александр wrapped. Following this the patient was able to ambulate with a walker at the bedside. She does feel comfortable with discharge home. She is recommended Tylenol Motrin for analgesia as well as a limited amount of oxycodone. She is advised prompt follow-up with her PCP as well as the orthopedist that did her knee replacement. The usual emergent return precautions for worsening symptoms was discussed. I am prescribing a short course of short-acting opioid pain medication for this patient. I have reviewed the patients FITNESS SERVICES MANAGER and no concerning findings were noted. I have discussed that the opioids are for short term therapy only, and will not be refilled from the ED. Departure - Departure Disposition: 01 Home, Self Care Clinical Impression: Ground-level fall, Hemarthrosis Left knee pain Qualifiers: Chronicity: acute Qualified Code(s): M25.562 - Pain in left knee Traumatic hematoma of forehead Qualifiers: Encounter type: initial encounter Qualified Code(s): S00.83XA - Contusion of other part of head, initial encounter Condition: Stable Record reviewed to determine appropriate education?: Yes Prescriptions: oxyCODONE [Roxicodone] 5 mg PO TID PRN #20 tablet PRN Reason: Pain Comments: Joselin you had a fall today and fell directly onto the left knee. The x-ray does not show an obvious broken bone. However you have a large amount of swelling around the knee. This is called hemarthrosis. The swelling is what is causing the increased pain. I do recommend that you wear the Александр wrap around your knee especially when out of bed over the next week. This will help with compression, reducing swelling and pain. In general I recommend they take Tylenol and ibuprofen for discomfort. For more severe pain a limited amount of oxycodone has been sent to your preferred pharmacy. I would like you to schedule prompt follow-up with your orthopedic surgeon for reevaluation of this knee. Please return immediately to the ER if you are having any new or worsening symptoms. I am prescribing a short course of narcotic pain medication for you. These are potentially dangerous and addictive medications that should be used carefully. These medications may constipate you. Take an [id number] stool softener (docusate) twice daily with plenty of water while taking these medications. If you go 24 hours without a bowel movement, take [id number] miralax, per package instructions. Do not drink or drive while taking these medications. If you received narcotic or sedating medications while in the emergency department, do not drive for 24 hours. Store this medication in a safe, secure place and out of reach of children. It is a violation of federal law to give or sell this medication to another person or to use in a manner other than prescribed. The ED will not refill narcotic prescriptions, including prescriptions lost or stolen. To dispose of unwanted medications: 1. [facility] at [address] in [place] has a medication drop box. They accept prescription medications (in pill form) Tuesday through Tuesday 9:00 a.m. to 5:00 p.m. 2. The [facility] [employer] accepts prescription medications (in pill form only) for disposal year round. Call for more information. 3. Contact the [facility] for the next [facility] sponsored prescription drug collection event. , [phone], or [phone]; Note that many narcotic pain relievers also contain Tylenol/acetaminophen. Please ensure that your total dose of acetaminophen from all sources does not exceed 3 g (3000 mg) per day.
[2023-05-02 18:45] VITALS: BP 179/67
== END 2023-05-02 18:51 | disposition home or self-care (01) ==
LOC: ED 15:32
DX: M25.062 Hemarthrosis, left knee (principal); S00.83XA Contusion of other part of head, initial encounter; W01.0XXA Fall on same level from slipping, tripping and stumbling without subsequent striking against object, initial encounter; Y93.01 Activity, walking, marching and hiking
CPT/HCPCS: 73564; 99282; 99283; A9270

== ENCOUNTER 2023-10-07 16:03 | Outpatient (CLI) | payer MEDICARE ==
--- NOTE | 2023-10-07 17:06 | Ultrasound Report ---
PROCEDURE: Extremity Soft Tissue Limited INDICATIONS: 2 LUMPS ON SHOULDER TECHNIQUE: Real-time scanning was performed of the right posterior shoulder, with image documentatio n. COMPARISON: CT of chest dated 09/14/2023. Neck soft tissue ultrasound dated 03/24/2022 FINDINGS: Focused ultrasound examination of right posterior shoulder at patient's reported area of p alpable lump shows 2 solid appearing heterogeneously hypoechoic structures in subcutaneous soft tissu e measures 3 x 3.4 x 1.0 and 1.6 x 1.6 x 0.6 cm in size. These structures are similar in echotexture with adjacent subcutaneous fat and show no internal vascularity is. IMPRESSION: Finding likely represent small lipomas in right posterior shoulder soft tissue. Clinical correlation and follow-up is recommended. Reviewed by: Jose Zaldivar MD on 10/07/2023 5:05 PM PDT Approved by: Jose Zaldivar MD on 10/07/2023 5:05 PM PDT Station ID: [id number]
== END 2023-10-07 16:04 | disposition home or self-care (01) ==
LOC: DI 16:03
PROVIDERS: ATTEND Family Medicine
DX: R22.31 Localized swelling, mass and lump, right upper limb (principal)